=== PATIENT | female | born 1960 | race Caucasian/White ===

== ENCOUNTER 2023-10-19 13:34 | Observation (INO) | payer MEDICAID ==
--- NOTE | 2023-10-19 14:06 | ERPHSYRPT ---
- History of Present Illness Time Seen by Provider: 10/19/23 14:01 Source: patient, family Exam Limitations: no limitations Patient Subjective Stated Complaint: PT HERE FOR SWELLING AND PAIN TO RIGHT HAND FOR A WEEK GETTING WORSE Triage Nursing Assessment: PT ARRIVED PER WC, ALERT, RESP EASY, SKIN W/D/P, HAS BLISTER TO RIGHT INDEX FINGER WITH SWELLING AND SOME REDNESS, SHE STATES STARTED AFTER CLIPPING FINGER NAILS . PT IS RIGHT BELOW KNEE AMPUTEE Physician History: patient trimmed nails and began to later note right index swelling she thought started with a hangnail. Now has pus blister on distal phalanx right index tender. NV, tendon function intact. no other complaints of symptoms or injuries. and no known trauma to this. Pt is Diabetic. family to serve as independent source for Hx. Discussed risks/benefits of testing and Tx with pt and family including CBC, CMP, ESR , xray, I and D, Keflex and they wish to proceed so these are ordered. Results discussed with pt and available family. Occurred: last week Method of Injury: other (nail clippers) Quality: constant, aching, sharpness, throbbing Severity of Pain-Max: moderate Severity of Pain-Current: moderate Extremities Pain Location: 2nd finger: right Modifying Factors: Improves With: movement Associated Symptoms: none Allergies/Adverse Reactions: No Known Drug Allergies Allergy (Unverified 10/19/23 13:46) Home Medications: Metformin HCl 500 mg [Glucophage 500 MG] 500 mg PO DAILY 10/19/23 [History] Hx Tetanus, Diphtheria Vaccination/Date Given: No Hx Influenza Vaccination/Date Given: No Hx Pneumococcal Vaccination/Date Given: Yes Immunizations Up to Date: Yes Travel Risk - International Travel Have you traveled outside of the country in past 3 weeks: No - Emerging Infectious Disease Are you exhibiting symptoms associated with any current EIDs: No - Review of Systems Constitutional: No Fever, No Chills Eyes: No Symptoms Ears, Nose, & Throat: No Symptoms Respiratory: No Cough, No Dyspnea Cardiac: No Chest Pain, No Edema, No Syncope Abdominal/Gastrointestinal: No Abdominal Pain, No Nausea, No Vomiting, No Diarrhea Genitourinary Symptoms: No Dysuria Musculoskeletal: No Back Pain, No Neck Pain Skin: Skin Lesions (right index pus blister), No Rash Neurological: No Dizziness, No Focal Weakness, No Sensory Changes Psychological: No Symptoms Endocrine: No Symptoms Hematologic/Lymphatic: No Symptoms Immunological/Allergic: No Symptoms All Other Systems: Reviewed and Negative - Past Medical History Pertinent Past Medical History: Yes Endocrine Medical History: Diabetes Type II - Past Surgical History Past Surgical History: Yes Musculoskeletal: Amputation Female Surgical History: Tubal Ligation Other Surgical History: RIGHT LEG - Social History Smoking Status: Former smoker Exposure to second hand smoke: Yes Drug Use: none - Nursing Vital Signs Nursing Vital Signs: Initial Vital Signs Temperature 97.6 F 10/19/23 13:35 Pulse Rate 84 10/19/23 13:35 Blood Pressure 170/64 10/19/23 13:35 O2 Sat by Pulse Oximetry 97 10/19/23 13:35 Pain Scale Pain Intensity 8 - Physical Exam General Appearance: no apparent distress, alert Eyes, Ears, Nose, Throat Exam: moist mucous membranes Neck Exam: non-tender, supple Cardiovascular/Respiratory Exam: chest non-tender, normal breath sounds, regular rate/rhythm, no respiratory distress Abdominal Exam: non-tender, No guarding Back Exam: normal inspection, No vertebral tenderness Shoulder Exam: normal inspection, non-tender, no evidence of injury, normal ROM Elbow/Forearm Exam: normal inspection, non-tender, no evidence of injury, normal ROM Wrist Exam: normal inspection, non-tender, no evidence of injury, normal ROM Hand Exam: infection (right index) DTR - Upper Extremity Exam: bicep (R): 2+, bicep (L): 2+, tricep (R): 2+, tricep (L): 2+ Neuro/Tendon Exam: normal sensation, normal motor functions, normal tendon functions Mental Status Exam: alert, oriented x 3, cooperative Skin Exam: normal color, warm, dry Procedures - Incision and Drainage Time of Procedure: 16:07 Anesthesia: 1% Lidocaine cc's of anesthesia: 2 Blade Size: other (18 gauge needle) I & D Procedure: hibiclens prep, sterile drapes applied, sterile dressing applied, culture obtained Results: large amount pus - Course Nursing assessment & vital signs reviewed: Yes - Radiology Exams Right Hand X-ray Interpretation: Interpreted by me, Reviewed by me, No Fracture, Other (no obvious osteomyelitis) Ordered Tests: Active Orders 24 hr Category Date Time Status HAND (MINIMUM 3 VIEWS) Stat Exams 10/19/23 14:09 Taken CBC W DIFF Stat Lab 10/19/23 14:25 Completed CMP Stat Lab 10/19/23 14:25 Completed Medication Summary Generic Name Dose Route Start Last Admin Trade Name Freq PRN Reason Stop Dose Admin Vancomycin HCl 1 gm in 200 mls @ 125 mls/hr 10/19/23 16:08 Vancomycin 1 Gram/200 Ml Bag IV 10/19/23 17:43 STAT ONE Discontinued Medications Generic Name Dose Route Start Last Admin Trade Name Freq PRN Reason Stop Dose Admin Diphtheria/Tetanus/Acell Pertussis 0.5 ml 10/19/23 14:10 10/19/23 14:25 Tdap --Diph,Pertuss(Acell),Tet Vac/Pf 0.5 Ml Vial IM 10/19/23 14:11 0.5 ml .ONCE ONE Administration Diphtheria/Tetanus/Acell Pertussis Confirm 10/19/23 14:22 Tdap --Diph,Pertuss(Acell),Tet Vac/Pf 0.5 Ml Vial Administered 10/19/23 14:23 Dose 0.5 ml IM .STK-MED ONE Ceftriaxone Sodium 1 gm in 100 mls @ 200 mls/hr 10/19/23 16:09 10/19/23 16:25 Rocephin 1 Gm / 100 Ml Nacl IV 10/19/23 16:38 200 ml/hr STAT ONE 200 mls/hr Administration Ceftriaxone Sodium Confirm 10/19/23 16:22 Rocephin 1 Gm / 100 Ml Nacl Administered 10/19/23 16:23 Dose 1 gm in 100 mls @ ud IV .STK-MED ONE Lab/Rad Data: Laboratory Result Diagrams 10/19/23 14:25 10/19/23 14:25 Laboratory Results 10/19/23 10/19/23 Range/Units 14:25 14:25 WBC 12.2 H (4.0-10.5) x10^3/uL RBC 3.83 L (4.1-5.4) x10^6/uL Hgb 9.0 L (12.0-16.0) g/dL Hct 29.1 L (35-47) % MCV 76.0 L (78-100) fL MCH 23.5 L (26-32) pg MCHC 30.9 L (32-36) g/dL RDW 18.6 H (11.5-14.0) % Plt Count 353 (150-450) x10^3/uL MPV 9.4 (7.5-11.0) fL Gran % 74.1 H (36.0-66.0) % Immature Gran % (Auto) 0.5 H (0.00-0.4) % Nucleat RBC Rel Count 0.0 (0.00-0.1) % Eos # (Auto) 0.23 (0-0.5) x10^3/uL Immature Gran # (Auto) 0.06 H (0.00-0.03) x10^3u/L Absolute Lymphs (auto) 2.35 (1.0-4.6) x10^3/uL Absolute Monos (auto) 0.46 (0.0-1.3) x10^3/uL Absolute Nucleated RBC 0.00 (0.00-0.01) x10^3u/L Lymphocytes % 19.3 L (24.0-44.0) % Monocytes % 3.8 (0.0-12.0) % Eosinophils % 1.9 (0.00-5.0) % Basophils % 0.4 (0.0-0.4) % Absolute Granulocytes 9.03 H (1.4-6.9) x10^3/uL Basophils # 0.05 (0-0.4) x10^3/uL Sodium 133 L (135-145) mmol/L Potassium 3.9 (3.5-5.1) mmol/L Chloride 100 (98-107) mmol/L Carbon Dioxide 23 (22-30) mmol/L Anion Gap 13.8 (5-15) MEQ/L BUN 9 (7-17) mg/dL Creatinine 0.73 (0.52-1.04) mg/dL Estimated GFR 91.8 ML/MIN Glucose 208 H (74-106) mg/dL Calcium 8.7 (8.4-10.2) mg/dL Total Bilirubin 0.40 (0.2-1.3) mg/dL AST 10 L (14-36) U/L ALT 12 (0-35) U/L Alkaline Phosphatase 101 (38-126) U/L Serum Total Protein 7.0 (6.3-8.2) g/dL Albumin 3.3 L (3.5-5.0) g/dL - Progress Progress: improved, re-examined Progress Note: 10/19/23 16:01 re-exam reveals pain with flexion of tendon of right index and now redness and swelling in the index extensor space onto the right dorsal hand. I did drane 5 cc pus from the first phalanx. discused vanc and rocephin with pt and available family and they wish to proceed. 10/19/23 16:05 decision is made that we need to consult a hand surgeon for drainage . Called but none available and we have none here at [facility]. Called hand center and awaiting return call. 10/19/23 16:21 hand [facility] could not take pt. we are trying other [facility]. 10/19/23 16:51 the other [facility] are full and cannot accept the pt. The hand surgeon Dr. Rosenberg felt in consultation that admission with IV AB was important and could be observed in hospital for progress but might require surgical draining if not improving - and I discussed this with our hospitalist Dr. Carr and he has accepted the pt for this purpose at our hospital. Counseled pt/family regarding: lab results, diagnosis, need for follow-up, rad results Medical Desision Making - Independent Historian Additional History obtained from: Family - Discussion of managment Reviewed:: Test results, Need for additional workup Agreed on:: Treatment plan, need for follow-up - Diagnostic Testing Diagnostic test were ordered, analyzed, and reviewed by me: Yes Radiological Interpretation: Interpreted by me, Reviewed by me - Risk of complications The pt has a mod risk of morbidity or mortality based on: Need for prescription drug management The pt has a high risk of morbidity or mortality based on: Decision regarding hospitilization or escalation of hosp level of care - Departure Departure Disposition: Observation Clinical Impression: right index tendon infection Condition: Good Critical Care Time: No Referrals: DOCTOR,NO FAMILY [Primary Care Provider] - Follow up/PCP as directed
[2023-10-19] MEDS ORDERED: Adacel Vial IM ONE (14:22)
[2023-10-19] MEDS: Adacel Vial IM ONE (14:25)
[2023-10-19 14:36] LABS: Absolute Neutrophil Ct (ANC) 9.03 x10^3/uL (1.4-6.9); BASOPHIL % 0.4 % (0.0-0.4); Basophil (Absolute #) 0.05 x10^3/uL (0-0.4); Eosinophil % 1.9 % (0.00-5.0); Eosinophil (Absolute #) 0.23 x10^3/uL (0-0.5); Hematocrit 29.1 % (35-47); IMMATURE GRAN # 0.06 x10^3u/L (0.00-0.03); IMMATURE GRAN % 0.5 % (0.00-0.4); Lymphocyte (Absolute #) 2.35 x10^3/uL (1.0-4.6); Lymphocytes % 19.3 % (24.0-44.0); Mean Corpuscular Hemoglobin 23.5 pg (26-32); Mean Corpuscular Hgb Concent. 30.9 g/dL (32-36); Mean Platelet Volume 9.4 fL (7.5-11.0); Monocyte (Absolute #) 0.46 x10^3/uL (0.0-1.3); Monocytes % 3.8 % (0.0-12.0); Neutrophil % 74.1 % (36.0-66.0); Platelet Count 353 x10^3/uL (150-450); Red Blood Count 3.83 x10^6/uL (4.1-5.4); Red Cell Distribution Width 18.6 % (11.5-14.0); White Blood Count 12.2 x10^3/uL (4.0-10.5)
[2023-10-19 14:50] LABS: ALBUMIN 3.3 g/dL (3.5-5.0); ANION GAP 13.8 MEQ/L (5-15); BILIRUBIN,TOTAL 0.4 mg/dL (0.2-1.3); Calcium 8.7 mg/dL (8.4-10.2); Creatinine 1 0.73 mg/dL (0.52-1.04); EST GLOMERULAR FILTRATION RATE 91.8 ML/MIN; Potassium 3.9 mmol/L (3.5-5.1)
[2023-10-19] MEDS ORDERED: ROCEPHIN 1 GM / 100 ML NaCl 1 GM/100 ML IVPB IV ONE (16:22)
[2023-10-19] MEDS: ROCEPHIN 1 GM / 100 ML NaCl 1 GM/100 ML IVPB IV ONE (16:25)
[2023-10-19] MEDS ORDERED: VANCOMYCIN 1 GRAM/200 ML BAG 1 GM/200 ML PIGGYBACK IV ONE (17:06)
[2023-10-19] MEDS: VANCOMYCIN 1 GRAM/200 ML BAG 1 GM/200 ML PIGGYBACK IV ONE (17:07)
--- NOTE | 2023-10-19 17:50 | PCM.HP ---
History of Present Illness - Chief Complaint Chief Complaint: right index finger tendon infection Date: 10/19/23 History of Present Illness: Ms. Hyman is a 63 year old female with a pmhx of DM II and RBKA who presented to ED 10/19/23 with complaints of swelling and pain to her right hand/right index finger for the past week. Patient reports that she noticed a small blister shortly after clipping her nails about a week ago which then progressed into a larger blister with surrounding redness, swelling, and pain. Patient reports the pain as constant and aching in characteristic, 5/10 on numerical pain scale. She states pain was relieved after I&D performed in ED. Upon exam dorsal medial right index finger with erythema and edema extending to mid dorsal right hand. Denies fever, cp, abdominal pain, POTTS, dizziness, N/V/D. In ED, vitals were stable. Right hand Xray per ED physician interpretation with no acute findings. Lab findings remarkable for leukocytosis with WBC at12.2, microcytic/hypochromic anemia, mild hyponatremia, and mild hyperglycemia. I&D pe rformed in ED with 5ML of pus drained from the first phalanx. Per Ed documentation, hand surgeon recommended overnight observation with antibiotics. Patient started on ceftriaxone and vancomycin. - Review of Systems Constitutional: No Symptoms Eyes: No Symptoms Ears, Nose, & Throat: No Symptoms Respiratory: Short Of Breath Cardiac: No Symptoms Abdominal/Gastrointestinal: No Symptoms Genitourinary Symptoms: No Symptoms Musculoskeletal: Joint Pain, Joint Swelling Skin: Skin Lesions (right index ) Neurological: No Symptoms Psychological: No Symptoms Endocrine: No Symptoms Hematologic/Lymphatic: Anemia Immunological/Allergic: No Symptoms Medications & Allergies Home Medications: Home Medication List Metformin HCl 500 mg [Glucophage 500 MG] 500 mg PO DAILY 10/19/23 [History Confirmed 10/19/23] Allergies/Adverse Reactions: Allergies Allergy/AdvReac Type Severity Reaction Status Date / Time No Known Drug Allergies Allergy Unverified 10/19/23 17:32 - Past Medical History Past Medical History: Yes Endocrine Medical History: Diabetes Type II - Past Surgical History Past Surgical History: Yes Musculskeletal Surgical Hx: Amputation Female Surgical History: Tubal Ligation Other Surgical History: RIGHT LEG - Social History Smoking Status: Former smoker Exposure to second hand smoke: Yes Alcohol: None Drug Use: none - Social Determinants of Health Will the patient participate in the screening: Yes Do you worry about a steady place to live?: No Do you have any problems with any of the following?: No known problems In the past 12 months,have you had to go without utilities?: No Have you or anyone in your house had to go without enough: No Transportation Issues: No Has anyone in your support network made you feel unsafe?: No - Physical Exam Vital Signs: Vital Signs - 24 hr Temp Pulse Resp BP BP Pulse Ox 10/19/23 17:02 97 10/19/23 16:00 154/67 10/19/23 15:30 164/78 98 10/19/23 15:27 141/65 98 10/19/23 15:26 82 16 141/65 95 10/19/23 15:25 93 L 10/19/23 13:35 97.6 F 84 170/64 97 General Appearance: no apparent distress Neurologic Exam: alert, oriented x 3, cooperative Eye Exam: PERRL/EOMI Ears, Nose, Throat Exam: normal ENT inspection Neck Exam: normal inspection Respiratory Exam: normal breath sounds, lungs clear Cardiovascular Exam: regular rate/rhythm, normal heart sounds Pelvic Exam: not done Rectal Exam: deferred Back Exam: normal inspection Extremity Exam: swelling (right index finger extending to mid dorsal right hand), tenderness Results - Labs Lab/Micro Results: Lab Results-Last 24 Hours 10/19/23 10/19/23 Range/Units 14:25 14:25 WBC 12.2 H (4.0-10.5) x10^3/uL RBC 3.83 L (4.1-5.4) x10^6/uL Hgb 9.0 L (12.0-16.0) g/dL Hct 29.1 L (35-47) % MCV 76.0 L (78-100) fL MCH 23.5 L (26-32) pg MCHC 30.9 L (32-36) g/dL RDW 18.6 H (11.5-14.0) % Plt Count 353 (150-450) x10^3/uL MPV 9.4 (7.5-11.0) fL Gran % 74.1 H (36.0-66.0) % Immature Gran % (Auto) 0.5 H (0.00-0.4) % Nucleat RBC Rel Count 0.0 (0.00-0.1) % Eos # (Auto) 0.23 (0-0.5) x10^3/uL Immature Gran # (Auto) 0.06 H (0.00-0.03) x10^3u/L Absolute Lymphs (auto) 2.35 (1.0-4.6) x10^3/uL Absolute Monos (auto) 0.46 (0.0-1.3) x10^3/uL Absolute Nucleated RBC 0.00 (0.00-0.01) x10^3u/L Lymphocytes % 19.3 L (24.0-44.0) % Monocytes % 3.8 (0.0-12.0) % Eosinophils % 1.9 (0.00-5.0) % Basophils % 0.4 (0.0-0.4) % Absolute Granulocytes 9.03 H (1.4-6.9) x10^3/uL Basophils # 0.05 (0-0.4) x10^3/uL Sodium 133 L (135-145) mmol/L Potassium 3.9 (3.5-5.1) mmol/L Chloride 100 (98-107) mmol/L Carbon Dioxide 23 (22-30) mmol/L Anion Gap 13.8 (5-15) MEQ/L BUN 9 (7-17) mg/dL Creatinine 0.73 (0.52-1.04) mg/dL Estimated GFR 91.8 ML/MIN Glucose 208 H (74-106) mg/dL Calcium 8.7 (8.4-10.2) mg/dL Total Bilirubin 0.40 (0.2-1.3) mg/dL AST 10 L (14-36) U/L ALT 12 (0-35) U/L Alkaline Phosphatase 101 (38-126) U/L Serum Total Protein 7.0 (6.3-8.2) g/dL Albumin 3.3 L (3.5-5.0) g/dL - Radiology Impressions Radiology Exams & Impressions: Radiology Procedures Category Date Time Status HAND (MINIMUM 3 VIEWS) Stat Exams 10/19/23 14:09 Taken Assessment/Plan (1) Abscess of finger of right hand Current Visit: Yes Status: Acute Assessment & Plan: -right hand xray per pre-pinedo read, no acute findings -Vanc/ceftriaxone started in ED, continue with doxycycline -Keep affected area elevated Code(s): L02.511 - CUTANEOUS ABSCESS OF RIGHT HAND (2) Leukocytosis Current Visit: Yes Status: Acute Assessment & Plan: -most likely secondary to right index finger infection -Vanc/ceftriaxone started in ED, will continue -WBC at 12.2 -trend -culture pending -will follow Code(s): D72.829 - ELEVATED WHITE BLOOD CELL COUNT, UNSPECIFIED (3) Type 2 diabetes mellitus Current Visit: Yes Status: Acute Assessment & Plan: -SSI -ADA diet -A1c The entirety of this encounter was performed via Telemedicine" This visit was performed using real-time audio and video connection between my location and thepatients locationwith the assistance of a surrogateat the patients location. Written or verbal consent was obtained from the patient/guardian to perform this visit using[employer]medicine technology. Any patient questions regarding the telemedicine interaction were answered. Telemedicine Encounter - Telemedicine Encounter Telemedicine Encounter: The entirety of this encounter was performed via Telemedicine"
[2023-10-19] MEDS ORDERED: TYLENOL 325 MG PO PRN (17:55)
[2023-10-19] MEDS ORDERED: HUMALOG SQ PRN (17:55)
[2023-10-19] MEDS ORDERED: NORCO 5/325 MG PO PRN (18:01)
[2023-10-19 19:05] LABS: Iron 20 ug/dL (37-170); Iron Saturation 7 % (20-39); TIBC 299 ug/dL (265-462)
[2023-10-19 20:03] LABS: Ferritin 16.1 ng/mL (11.1-264); Folate (Folic Acid) 4.59 ng/mL (2.76 - >20)
--- NOTE | 2023-10-19 20:27 | XRAY ---
Indication: Right index finger infection. Comparison: None 3 view right hand demonstrates diffuse 2nd finger soft tissue swelling. Elsewhere osteopenia, mild degenerative changes all IP joints, and radial/ulnar vascular calcifications. No other bony, articular, or soft tissue abnormalities.
[2023-10-20 06:04] LABS: ANION GAP 11.5 MEQ/L (5-15); Absolute Neutrophil Ct (ANC) 8.06 x10^3/uL (1.4-6.9); BASOPHIL % 0.4 % (0.0-0.4); BILIRUBIN,TOTAL 0.3 mg/dL (0.2-1.3); Basophil (Absolute #) 0.05 x10^3/uL (0-0.4); Calcium 8.5 mg/dL (8.4-10.2); Creatinine 1 0.77 mg/dL (0.52-1.04); EST GLOMERULAR FILTRATION RATE 86.1 ML/MIN; Eosinophil % 2.5 % (0.00-5.0); Eosinophil (Absolute #) 0.28 x10^3/uL (0-0.5); Hemoglobin 8.5 g/dL (12.0-16.0); IMMATURE GRAN # 0.04 x10^3u/L (0.00-0.03); IMMATURE GRAN % 0.4 % (0.00-0.4); Lymphocyte (Absolute #) 2.26 x10^3/uL (1.0-4.6); Lymphocytes % 20.2 % (24.0-44.0); Mean Cell Volume 76.3 fL (78-100); Mean Corpuscular Hemoglobin 23.2 pg (26-32); Mean Corpuscular Hgb Concent. 30.4 g/dL (32-36); Mean Platelet Volume 9.9 fL (7.5-11.0); Monocyte (Absolute #) 0.48 x10^3/uL (0.0-1.3); Monocytes % 4.3 % (0.0-12.0); Neutrophil % 72.2 % (36.0-66.0); Platelet Count 340 x10^3/uL (150-450); Potassium 3.9 mmol/L (3.5-5.1); Red Blood Count 3.67 x10^6/uL (4.1-5.4); Red Cell Distribution Width 18.7 % (11.5-14.0); Total Protein 6.5 g/dL (6.3-8.2); White Blood Count 11.2 x10^3/uL (4.0-10.5)
[2023-10-20] MEDS: Sodium Chloride 0.9% 1000 ML 1,000 ML IV SCH (08:01)
[2023-10-20] MEDS: VANCOMYCIN 1 GRAM/200 ML BAG 1 GM/200 ML PIGGYBACK IV SCH (09:41)
[2023-10-20] MEDS ORDERED: Vibramycin 100 MG PO SCH (10:00)
--- NOTE | 2023-10-20 10:15 | PCM.NOTE ---
Date and Time: 10/20/23 1002 Subjective Assessment: Ms. Hyman is a 63 year old female admitted with an abscess of her right finger after experiencing a week history of redness, swelling, and pain following a nail clipping. Right hand Xray demonstrates 2nd finger soft tissue swelling. Lab findings remarkable for leukocytosis with WBC at12.2, microcytic/hypochromic anemia, mild hyponatremia, and mild hyperglycemia. I&D performed in ED with 5ML of pus drained from the first phalanx. Patient initially received ceftriaxone and vancomycin, continued on vancomycin and unasyn. Cultures pending. 10/20/23: Met with patient bedside. Endorses that pain and swelling have improvement since admission. Upon exam of the right index finger and hand erythema is receeding marked borders on the proximal hand although there is not much improvement in swelling. Discussed labwork showing improved WBC. Patient is mildly hyponatremic. Discussed A1c of 9.91 and the importance of good glycemic control on healing etc. Patient states she does not follow with PCP or any specialist as an OP. Will have CM look into PCP and any additional home needs. Plan for continued IV abx- await cultures. Denies fever,cough, sob, cp, abdominal pain, POTTS, dizziness, N/V/D. - Review of Systems Constitutional: No Symptoms Eyes: No Symptoms Ears, Nose, & Throat: No Symptoms Respiratory: No Symptoms Cardiac: No Symptoms Abdominal/Gastrointestinal: No Symptoms Genitourinary Symptoms: No Symptoms Musculoskeletal: Joint Pain (right index finger) Skin: Skin Lesions (right extension side of finger into proximal hand), Other Neurological: No Symptoms Psychological: No Symptoms Endocrine: No Symptoms Hematologic/Lymphatic: No Symptoms Immunological/Allergic: No Symptoms Objective Exam General Appearance: no apparent distress Neurologic Exam: alert, oriented x 3, cooperative Skin Exam: other (see wound assessment) Wound Assessment: Skin/Wound Assessment Wound/Incision Assessment Start: 10/19/23 18:07 Text: Status: Active Freq: Q6H Protocol: Document 10/20/23 08:00 JV (Rec: 10/20/23 08:29 JV [id number]) Wound/Incision Assessment Right Finger Wound Assessment Shift Assessment Wound Type infection Wound Stage Non Pressure Wound Drainage Amount None General Appearance Well Approximated,Open to air Surrounding Tissue Bright Red,Edematous Comment reddness marked, no drainage noted. Remains true. Wound Photo Photo Taken No Eye Exam: PERRL Ears, Nose, Throat Exam: moist mucous membranes Neck Exam: normal inspection, full range of motion Respiratory Exam: wheezing (exp bilaterally) Cardiovascular Exam: regular rate/rhythm, normal heart sounds Gastrointestinal/Abdomen Exam: soft, normal bowel sounds Extremity Exam: inflammation (right index finger), joint swelling (r), swelling, other (RBKA) Back Exam: normal inspection Pelvic Exam: deferred Rectal Exam: deferred Objective Data Vital Signs: Vital Signs - 24 hr Temp Pulse Resp BP BP Pulse Ox 10/20/23 08:00 131/66 10/20/23 07:04 97.9 F 84 16 182/71 93 L 10/20/23 04:00 99.4 F 88 20 161/65 97 10/20/23 00:00 98.0 F 76 19 128/59 89 L 10/19/23 20:00 98.4 F 76 22 139/64 92 L 10/19/23 17:45 98 F 92 H 20 157/69 95 10/19/23 17:02 97 10/19/23 16:00 154/67 10/19/23 15:30 164/78 98 10/19/23 15:27 141/65 98 10/19/23 15:26 82 16 141/65 95 10/19/23 15:25 93 L 10/19/23 13:35 97.6 F 84 170/64 97 Pain Assessment - Last Documented Pain Intensity 0 Intake and Output: Intake & Output 10/17/23 10/18/23 10/19/23 10/20/23 11:59 11:59 11:59 11:59 Intake Total 600 Output Total 500 Balance 100 Weight 60.5 kg Lab Results: Lab Results-Last 24 Hours 10/19/23 10/19/23 10/19/23 Range/Units 14:25 14:25 14:25 WBC 12.2 H (4.0-10.5) x10^3/uL RBC 3.83 L (4.1-5.4) x10^6/uL Hgb 9.0 L (12.0-16.0) g/dL Hct 29.1 L (35-47) % MCV 76.0 L (78-100) fL MCH 23.5 L (26-32) pg MCHC 30.9 L (32-36) g/dL RDW 18.6 H (11.5-14.0) % Plt Count 353 (150-450) x10^3/uL MPV 9.4 (7.5-11.0) fL Gran % 74.1 H (36.0-66.0) % Immature Gran % (Auto) 0.5 H (0.00-0.4) % Nucleat RBC Rel Count 0.0 (0.00-0.1) % Eos # (Auto) 0.23 (0-0.5) x10^3/uL Immature Gran # (Auto) 0.06 H (0.00-0.03) x10^3u/L Absolute Lymphs (auto) 2.35 (1.0-4.6) x10^3/uL Absolute Monos (auto) 0.46 (0.0-1.3) x10^3/uL Absolute Nucleated RBC 0.00 (0.00-0.01) x10^3u/L Lymphocytes % 19.3 L (24.0-44.0) % Monocytes % 3.8 (0.0-12.0) % Eosinophils % 1.9 (0.00-5.0) % Basophils % 0.4 (0.0-0.4) % Absolute Granulocytes 9.03 H (1.4-6.9) x10^3/uL Basophils # 0.05 (0-0.4) x10^3/uL Sodium 133 L (135-145) mmol/L Potassium 3.9 (3.5-5.1) mmol/L Chloride 100 (98-107) mmol/L Carbon Dioxide 23 (22-30) mmol/L Anion Gap 13.8 (5-15) MEQ/L BUN 9 (7-17) mg/dL Creatinine 0.73 (0.52-1.04) mg/dL Estimated GFR 91.8 ML/MIN Glucose 208 H (74-106) mg/dL POC Glucometer (74 to 106) mg/dL Hemoglobin A1c (4.5-6.0) % Calcium 8.7 (8.4-10.2) mg/dL Iron (37-170) ug/dL TIBC (265-462) ug/dL Iron Saturation (20-39) % Ferritin 16.1 (11.1-264) ng/mL Total Bilirubin 0.40 (0.2-1.3) mg/dL AST 10 L (14-36) U/L ALT 12 (0-35) U/L Alkaline Phosphatase 101 (38-126) U/L Serum Total Protein 7.0 (6.3-8.2) g/dL Albumin 3.3 L (3.5-5.0) g/dL Vitamin B12 180 L (239-931) pg/mL Folic Acid 4.59 (2.76 - >20) ng/mL 10/19/23 10/19/23 10/19/23 Range/Units 14:25 18:20 21:42 WBC (4.0-10.5) x10^3/uL RBC (4.1-5.4) x10^6/uL Hgb (12.0-16.0) g/dL Hct (35-47) % MCV (78-100) fL MCH (26-32) pg MCHC (32-36) g/dL RDW (11.5-14.0) % Plt Count (150-450) x10^3/uL MPV (7.5-11.0) fL Gran % (36.0-66.0) % Immature Gran % (Auto) (0.00-0.4) % Nucleat RBC Rel Count (0.00-0.1) % Eos # (Auto) (0-0.5) x10^3/uL Immature Gran # (Auto) (0.00-0.03) x10^3u/L Absolute Lymphs (auto) (1.0-4.6) x10^3/uL Absolute Monos (auto) (0.0-1.3) x10^3/uL Absolute Nucleated RBC (0.00-0.01) x10^3u/L Lymphocytes % (24.0-44.0) % Monocytes % (0.0-12.0) % Eosinophils % (0.00-5.0) % Basophils % (0.0-0.4) % Absolute Granulocytes (1.4-6.9) x10^3/uL Basophils # (0-0.4) x10^3/uL Sodium (135-145) mmol/L Potassium (3.5-5.1) mmol/L Chloride (98-107) mmol/L Carbon Dioxide (22-30) mmol/L Anion Gap (5-15) MEQ/L BUN (7-17) mg/dL Creatinine (0.52-1.04) mg/dL Estimated GFR ML/MIN Glucose (74-106) mg/dL POC Glucometer 123 H 155 H (74 to 106) mg/dL Hemoglobin A1c (4.5-6.0) % Calcium (8.4-10.2) mg/dL Iron 20 L (37-170) ug/dL TIBC 299 (265-462) ug/dL Iron Saturation 7 L (20-39) % Ferritin (11.1-264) ng/mL Total Bilirubin (0.2-1.3) mg/dL AST (14-36) U/L ALT (0-35) U/L Alkaline Phosphatase (38-126) U/L Serum Total Protein (6.3-8.2) g/dL Albumin (3.5-5.0) g/dL Vitamin B12 (239-931) pg/mL Folic Acid (2.76 - >20) ng/mL 10/20/23 10/20/23 10/20/23 Range/Units 05:20 05:20 05:20 WBC 11.2 H (4.0-10.5) x10^3/uL RBC 3.67 L (4.1-5.4) x10^6/uL Hgb 8.5 L (12.0-16.0) g/dL Hct 28.0 L (35-47) % MCV 76.3 L (78-100) fL MCH 23.2 L (26-32) pg MCHC 30.4 L (32-36) g/dL RDW 18.7 H (11.5-14.0) % Plt Count 340 (150-450) x10^3/uL MPV 9.9 (7.5-11.0) fL Gran % 72.2 H (36.0-66.0) % Immature Gran % (Auto) 0.4 (0.00-0.4) % Nucleat RBC Rel Count 0.0 (0.00-0.1) % Eos # (Auto) 0.28 (0-0.5) x10^3/uL Immature Gran # (Auto) 0.04 H (0.00-0.03) x10^3u/L Absolute Lymphs (auto) 2.26 (1.0-4.6) x10^3/uL Absolute Monos (auto) 0.48 (0.0-1.3) x10^3/uL Absolute Nucleated RBC 0.00 (0.00-0.01) x10^3u/L Lymphocytes % 20.2 L (24.0-44.0) % Monocytes % 4.3 (0.0-12.0) % Eosinophils % 2.5 (0.00-5.0) % Basophils % 0.4 (0.0-0.4) % Absolute Granulocytes 8.06 H (1.4-6.9) x10^3/uL Basophils # 0.05 (0-0.4) x10^3/uL Sodium 132 L (135-145) mmol/L Potassium 3.9 (3.5-5.1) mmol/L Chloride 104 (98-107) mmol/L Carbon Dioxide 21 L (22-30) mmol/L Anion Gap 11.5 (5-15) MEQ/L BUN 10 (7-17) mg/dL Creatinine 0.77 (0.52-1.04) mg/dL Estimated GFR 86.1 ML/MIN Glucose 154 H (74-106) mg/dL POC Glucometer (74 to 106) mg/dL Hemoglobin A1c 9.91 H (4.5-6.0) % Calcium 8.5 (8.4-10.2) mg/dL Iron (37-170) ug/dL TIBC (265-462) ug/dL Iron Saturation (20-39) % Ferritin (11.1-264) ng/mL Total Bilirubin 0.30 (0.2-1.3) mg/dL AST 12 L (14-36) U/L ALT 11 (0-35) U/L Alkaline Phosphatase 106 (38-126) U/L Serum Total Protein 6.5 (6.3-8.2) g/dL Albumin 3.0 L (3.5-5.0) g/dL Vitamin B12 (239-931) pg/mL Folic Acid (2.76 - >20) ng/mL 05/27/24 Range/Units 07:20 WBC (4.0-10.5) x10^3/uL RBC (4.1-5.4) x10^6/uL Hgb (12.0-16.0) g/dL Hct (35-47) % MCV (78-100) fL MCH (26-32) pg MCHC (32-36) g/dL RDW (11.5-14.0) % Plt Count (150-450) x10^3/uL MPV (7.5-11.0) fL Gran % (36.0-66.0) % Immature Gran % (Auto) (0.00-0.4) % Nucleat RBC Rel Count (0.00-0.1) % Eos # (Auto) (0-0.5) x10^3/uL Immature Gran # (Auto) (0.00-0.03) x10^3u/L Absolute Lymphs (auto) (1.0-4.6) x10^3/uL Absolute Monos (auto) (0.0-1.3) x10^3/uL Absolute Nucleated RBC (0.00-0.01) x10^3u/L Lymphocytes % (24.0-44.0) % Monocytes % (0.0-12.0) % Eosinophils % (0.00-5.0) % Basophils % (0.0-0.4) % Absolute Granulocytes (1.4-6.9) x10^3/uL Basophils # (0-0.4) x10^3/uL Sodium (135-145) mmol/L Potassium (3.5-5.1) mmol/L Chloride (98-107) mmol/L Carbon Dioxide (22-30) mmol/L Anion Gap (5-15) MEQ/L BUN (7-17) mg/dL Creatinine (0.52-1.04) mg/dL Estimated GFR ML/MIN Glucose (74-106) mg/dL POC Glucometer 127 H (74 to 106) mg/dL Hemoglobin A1c (4.5-6.0) % Calcium (8.4-10.2) mg/dL Iron (37-170) ug/dL TIBC (265-462) ug/dL Iron Saturation (20-39) % Ferritin (11.1-264) ng/mL Total Bilirubin (0.2-1.3) mg/dL AST (14-36) U/L ALT (0-35) U/L Alkaline Phosphatase (38-126) U/L Serum Total Protein (6.3-8.2) g/dL Albumin (3.5-5.0) g/dL Vitamin B12 (239-931) pg/mL Folic Acid (2.76 - >20) ng/mL Radiology Exams: Radiology Procedures Category Date Time Status HAND (MINIMUM 3 VIEWS) Stat Exams 10/19/23 14:09 Completed Multi-Disciplinary Progress Notes: Multi-Disciplinary Progress Notes 10/20/23 09:35 Pharmacy Note by Merlin Oleary Pharmacokinetic dosing service Date: 10/20/2023 Time: 929 Objective: Patient: Lurdes Hyman Floor: 102 Age: 63 yo Serum creatinine: 0.77 mg/dL Height: 63 Inches Weight (kg): 60 Diagnosis: SKIN INFECTION HAND Relevant medical/social history: Cultures and sensitivities: PENDING Other labs: Assessment: IBW (kg): 52.40 Dosing wt(kg): 60 Estimated Creatinine clearance (ml/min): 61.1 CRCL method: Cockcroft and Gault using ibw(default). Drug selected: Vancomycin Loading dose (mg): 1000 MG 10/15 1700 Vd (liters): 42.0 (factor used: 0.7 L/kg) Jeffrey (hr-1): 0.055 Half life (hrs): 12.60 Recommended dose: 1000 mg Interval: 24 hrs Infusion time (hrs): 1.5 Predicted peak (mcg/mL): 31.2 Predicted trough (mcg/mL): 9.05 Total body weight is being used for vancomycin dosing. Renal function is stable [ XXX] /unstable [ ] Recommendations: Give Vancomycin 1000 mg q 24 hrs with an expected Cpeak of 31.2 mcg/ml and an expected Ctrough of 9.05 mcg/ml Renal dosing of other antibiotics (review renal dosing of other medications and list guidelines here): Thank you for the consult, will continue to follow. Signature: KAROL TROUGH 10/21 929 Initialized on 10/20/23 09:35 - END OF NOTE 10/20/23 09:35 Pharmacy Note by Merlin Oleary THE CALCULATED CREATININE CLEARANCE FOR THIS PATIENT IS: 61 ML/MIN PHARMACY TO DOSE ZOSYN PER MD REQUEST PER MEDICAL STAFF APPROVED PHARMACY PROTOCOL THE MEDICATION DOSE: ZOSYN 3.375 GM Q6H THANK YOU KAROL Initialized on 10/20/23 09:35 - END OF NOTE Assessment/Plan (1) Abscess of finger of right hand Current Visit: Yes Status: Acute Assessment & Plan: (1) Abscess of finger of right hand Current Visit: Yes Status: Acute Assessment & Plan: -right hand xray per pre-pinedo read, no acute findings -Vanc/ceftriaxone started in ED, continue with doxycycline -Keep affected area elevated 10/19: -right hand xray final report with right 2nd finger soft tissue swelling -Will continue vanc/unasyn - follow cultures -Plan for ortho consult tomorrow Code(s): L02.511 - CUTANEOUS ABSCESS OF RIGHT HAND (2) Leukocytosis Current Visit: Yes Status: Acute Assessment & Plan: -most likely secondary to right index finger infection -Vanc/ceftriaxone started in ED, will continue -WBC at 12.2 -trend -culture pending -will follow 10/19: -improving Code(s): D72.829 - ELEVATED WHITE BLOOD CELL COUNT, UNSPECIFIED (3) Type 2 diabetes mellitus Current Visit: Yes Status: Acute Assessment & Plan: -SSI -ADA diet -A1c -9.91 -discussed importance of good glycemic control. Will have CM meet with patient to discuss needs - pt will need set up with follow up pcp #Hyponatremia -Mild, IVF at 75ml/hr # Anemia -iron sat at 7%, hgb at 8.5, will start on ferrous sulfate for now, refer for op iron infusion on dc Code(s): L02.511 - CUTANEOUS ABSCESS OF RIGHT HAND (2) Leukocytosis Current Visit: Yes Status: Acute Code(s): D72.829 - ELEVATED WHITE BLOOD CELL COUNT, UNSPECIFIED (3) Type 2 diabetes mellitus Current Visit: Yes Status: Acute (4) Hyponatremia Current Visit: Yes Status: Acute Code(s): E87.1 - HYPO-OSMOLALITY AND HYPONATREMIA (5) Hypochromic microcytic anemia Current Visit: Yes Status: Acute Code(s): D50.9 - IRON DEFICIENCY ANEMIA, UNSPECIFIED
[2023-10-20 12:00] LABS: ANION GAP 9.9 MEQ/L (5-15); Calcium 8.3 mg/dL (8.4-10.2); Creatinine 1 0.93 mg/dL (0.52-1.04); EST GLOMERULAR FILTRATION RATE 68.6 ML/MIN; Potassium 3.9 mmol/L (3.5-5.1)
[2023-10-20] MEDS: PIPERACILLIN/TAZOBACTAM 3.375 GM in Sodium Chloride 100ML MINI-BAG PLUS 100 ML IV SCH (12:09)
[2023-10-20] MEDS: DUONEB 0.5-3 MG/3 ml Neb IH PRN (14:03)
[2023-10-20] MEDS: Zofran 4 MG/2 ML VIAL IV PRN (22:19)
[2023-10-21 04:30] LABS: Absolute Neutrophil Ct (ANC) 4.72 x10^3/uL (1.4-6.9); BASOPHIL % 0.6 % (0.0-0.4); Basophil (Absolute #) 0.04 x10^3/uL (0-0.4); Eosinophil % 2.7 % (0.00-5.0); Eosinophil (Absolute #) 0.19 x10^3/uL (0-0.5); Hematocrit 24.5 % (35-47); Hemoglobin 7.5 g/dL (12.0-16.0); IMMATURE GRAN # 0.03 x10^3u/L (0.00-0.03); IMMATURE GRAN % 0.4 % (0.00-0.4); Lymphocyte (Absolute #) 1.72 x10^3/uL (1.0-4.6); Lymphocytes % 24.4 % (24.0-44.0); Mean Corpuscular Hemoglobin 23.6 pg (26-32); Mean Corpuscular Hgb Concent. 30.6 g/dL (32-36); Mean Platelet Volume 9.7 fL (7.5-11.0); Monocyte (Absolute #) 0.36 x10^3/uL (0.0-1.3); Monocytes % 5.1 % (0.0-12.0); Neutrophil % 66.8 % (36.0-66.0); Platelet Count 289 x10^3/uL (150-450); Red Blood Count 3.18 x10^6/uL (4.1-5.4); Red Cell Distribution Width 18.7 % (11.5-14.0); White Blood Count 7.1 x10^3/uL (4.0-10.5)
[2023-10-21 04:56] LABS: ALBUMIN 2.4 g/dL (3.5-5.0); ANION GAP 8.3 MEQ/L (5-15); BILIRUBIN,TOTAL 0.2 mg/dL (0.2-1.3); Calcium 7.7 mg/dL (8.4-10.2); Creatinine 1 0.83 mg/dL (0.52-1.04); EST GLOMERULAR FILTRATION RATE 78.7 ML/MIN; Potassium 3.8 mmol/L (3.5-5.1); Total Protein 5.5 g/dL (6.3-8.2)
[2023-10-21] MEDS: PHARMACY DOSING REQUEST MC ONE (10:24)
--- NOTE | 2023-10-21 10:26 | PCM.DS ---
Discharge Summary Date of Admission: 10/19/23 17:23 Date of Discharge: 10/21/23 Admitting Physician: HITESH ALCANTARA MD Primary Care Provider: NO FAMILY DOCTOR Allergies Allergies No Known Drug Allergies Allergy (Unverified 10/19/23 17:32) Hospital Summary - Hospital Course Hospital Course: Ms. Hyman is a 63 year old female admitted with an abscess of her right finger after experiencing a week history of redness, swelling, and pain following a nail clipping. Right hand Xray demonstrates 2nd finger soft tissue swelling. Initial Lab findings remarkable for leukocytosis with WBC at 12.2, microcytic/hypochromic anemia, mild hyponatremia, and mild hyperglycemia. I&D performed in ED with 5ML of pus drained from the first phalanx. Patient initially received ceftriaxone and vancomycin, continued on vancomycin and unasyn. Cultures showing MRSA. Patient adamant about discharging home today. Will discharge home on oral antibiotics. Patient started on ferrous sulfate BID, received venofer x 1 dose, will need follow up this week for labs. Patient has been set up with PCP as OP. Glucometer sent out and patient advised on the importance of good glycemic control. Recommend follow up with Dr. Flood (ID) as well. Discharge Note New Diagnosis: MRSA infection right index finger New Medications: Doxycycline/keflex Follow Up: PCP/ID Latest Assessment & Plan (1) Abscess of finger of right hand Current Visit: Yes Status: Acute Assessment & Plan: -right hand xray per pre-pinedo read, no acute findings -Vanc/ceftriaxone started in ED, continue with doxycycline -Keep affected area elevated 10/19: -right hand xray final report with right 2nd finger soft tissue swelling -Will continue vanc/unasyn - follow cultures 10/20: -culture with MRSA - send home with doxy/keflex - follow up with ID Code(s): L02.511 - CUTANEOUS ABSCESS OF RIGHT HAND (2) Leukocytosis Current Visit: Yes Status: Acute Assessment & Plan: -most likely secondary to right index finger infection -Vanc/ceftriaxone started in ED, will continue -WBC at 12.2 -trend -culture pending -will follow 10/19: -improving 10/20: -Resolved Code(s): D72.829 - ELEVATED WHITE BLOOD CELL COUNT, UNSPECIFIED (3) Type 2 diabetes mellitus Current Visit: Yes Status: Acute Assessment & Plan: -SSI -ADA diet -A1c -9.91 -discussed importance of good glycemic control. Will have CM meet with patient to discuss needs - pt will need set up with follow up pcp 10/20: -glucometer and strips sent -PCP and ID set up for pt #Anemia -Venofer x 1 dose -ferrous sulfate BID -recheck labs this week with PCP I spent 35 minutes [id number] with the patient on the day of discharge performing discharge exam, discussing hospital stay and discharge instructions with patient and caregivers, preparation of discharge records, prescriptions & referral forms and addressing any questions/concerns the patient had as documented above. - Vitals & Intake/Output Vital Signs: Vital Signs Temperature 96.8 F 10/21/23 07:11 Pulse Rate 72 10/21/23 07:11 Respiratory Rate 19 10/21/23 07:11 Blood Pressure 138/63 10/21/23 07:11 O2 Sat by Pulse Oximetry 97 10/21/23 07:11 Intake & Output: Intake & Output 10/18/23 10/19/23 10/20/23 10/21/23 11:59 11:59 11:59 11:59 Intake Total 600 3331 Output Total 500 325 Balance 100 3006 Weight 60.5 kg - Lab Result Diagrams: 10/21/23 04:25 10/21/23 04:25 Lab Results-Last 24 Hrs: Lab Results-Last 24 Hours 10/20/23 10/20/23 10/20/23 Range/Units 11:32 11:40 16:08 WBC (4.0-10.5) x10^3/uL RBC (4.1-5.4) x10^6/uL Hgb (12.0-16.0) g/dL Hct (35-47) % MCV (78-100) fL MCH (26-32) pg MCHC (32-36) g/dL RDW (11.5-14.0) % Plt Count (150-450) x10^3/uL MPV (7.5-11.0) fL Gran % (36.0-66.0) % Immature Gran % (Auto) (0.00-0.4) % Nucleat RBC Rel Count (0.00-0.1) % Eos # (Auto) (0-0.5) x10^3/uL Immature Gran # (Auto) (0.00-0.03) x10^3u/L Absolute Lymphs (auto) (1.0-4.6) x10^3/uL Absolute Monos (auto) (0.0-1.3) x10^3/uL Absolute Nucleated RBC (0.00-0.01) x10^3u/L Lymphocytes % (24.0-44.0) % Monocytes % (0.0-12.0) % Eosinophils % (0.00-5.0) % Basophils % (0.0-0.4) % Absolute Granulocytes (1.4-6.9) x10^3/uL Basophils # (0-0.4) x10^3/uL Sodium 133 L (135-145) mmol/L Potassium 3.9 (3.5-5.1) mmol/L Chloride 104 (98-107) mmol/L Carbon Dioxide 23 (22-30) mmol/L Anion Gap 9.9 (5-15) MEQ/L BUN 11 (7-17) mg/dL Creatinine 0.93 (0.52-1.04) mg/dL Estimated GFR 68.6 ML/MIN Glucose 162 H (74-106) mg/dL POC Glucometer 164 H 146 H (74 to 106) mg/dL Calcium 8.3 L (8.4-10.2) mg/dL Total Bilirubin (0.2-1.3) mg/dL AST (14-36) U/L ALT (0-35) U/L Alkaline Phosphatase (38-126) U/L Serum Total Protein (6.3-8.2) g/dL Albumin (3.5-5.0) g/dL 10/20/23 10/21/23 10/21/23 Range/Units 21:06 04:25 04:25 WBC 7.1 (4.0-10.5) x10^3/uL RBC 3.18 L (4.1-5.4) x10^6/uL Hgb 7.5 L (12.0-16.0) g/dL Hct 24.5 L (35-47) % MCV 77.0 L (78-100) fL MCH 23.6 L (26-32) pg MCHC 30.6 L (32-36) g/dL RDW 18.7 H (11.5-14.0) % Plt Count 289 (150-450) x10^3/uL MPV 9.7 (7.5-11.0) fL Gran % 66.8 H (36.0-66.0) % Immature Gran % (Auto) 0.4 (0.00-0.4) % Nucleat RBC Rel Count 0.0 (0.00-0.1) % Eos # (Auto) 0.19 (0-0.5) x10^3/uL Immature Gran # (Auto) 0.03 (0.00-0.03) x10^3u/L Absolute Lymphs (auto) 1.72 (1.0-4.6) x10^3/uL Absolute Monos (auto) 0.36 (0.0-1.3) x10^3/uL Absolute Nucleated RBC 0.00 (0.00-0.01) x10^3u/L Lymphocytes % 24.4 (24.0-44.0) % Monocytes % 5.1 (0.0-12.0) % Eosinophils % 2.7 (0.00-5.0) % Basophils % 0.6 (0.0-0.4) % Absolute Granulocytes 4.72 (1.4-6.9) x10^3/uL Basophils # 0.04 (0-0.4) x10^3/uL Sodium 135 (135-145) mmol/L Potassium 3.8 (3.5-5.1) mmol/L Chloride 111 H (98-107) mmol/L Carbon Dioxide 20 L (22-30) mmol/L Anion Gap 8.3 (5-15) MEQ/L BUN 13 (7-17) mg/dL Creatinine 0.83 (0.52-1.04) mg/dL Estimated GFR 78.7 ML/MIN Glucose 155 H (74-106) mg/dL POC Glucometer 149 H (74 to 106) mg/dL Calcium 7.7 L (8.4-10.2) mg/dL Total Bilirubin 0.20 (0.2-1.3) mg/dL AST 20 (14-36) U/L ALT 13 (0-35) U/L Alkaline Phosphatase 99 (38-126) U/L Serum Total Protein 5.5 L (6.3-8.2) g/dL Albumin 2.4 L (3.5-5.0) g/dL 10/21/23 Range/Units 06:45 WBC (4.0-10.5) x10^3/uL RBC (4.1-5.4) x10^6/uL Hgb (12.0-16.0) g/dL Hct (35-47) % MCV (78-100) fL MCH (26-32) pg MCHC (32-36) g/dL RDW (11.5-14.0) % Plt Count (150-450) x10^3/uL MPV (7.5-11.0) fL Gran % (36.0-66.0) % Immature Gran % (Auto) (0.00-0.4) % Nucleat RBC Rel Count (0.00-0.1) % Eos # (Auto) (0-0.5) x10^3/uL Immature Gran # (Auto) (0.00-0.03) x10^3u/L Absolute Lymphs (auto) (1.0-4.6) x10^3/uL Absolute Monos (auto) (0.0-1.3) x10^3/uL Absolute Nucleated RBC (0.00-0.01) x10^3u/L Lymphocytes % (24.0-44.0) % Monocytes % (0.0-12.0) % Eosinophils % (0.00-5.0) % Basophils % (0.0-0.4) % Absolute Granulocytes (1.4-6.9) x10^3/uL Basophils # (0-0.4) x10^3/uL Sodium (135-145) mmol/L Potassium (3.5-5.1) mmol/L Chloride (98-107) mmol/L Carbon Dioxide (22-30) mmol/L Anion Gap (5-15) MEQ/L BUN (7-17) mg/dL Creatinine (0.52-1.04) mg/dL Estimated GFR ML/MIN Glucose (74-106) mg/dL POC Glucometer 164 H (74 to 106) mg/dL Calcium (8.4-10.2) mg/dL Total Bilirubin (0.2-1.3) mg/dL AST (14-36) U/L ALT (0-35) U/L Alkaline Phosphatase (38-126) U/L Serum Total Protein (6.3-8.2) g/dL Albumin (3.5-5.0) g/dL Micro Results-Entire Visit: Microbiology 10/19/23 15:00 Wound Culture - Final Finger - R First(Index) Methicillin Resist Staph Aur Accuchecks Date 10/21/23 Date 10/20/23 Date 10/20/23 Date 10/20/23 Time 07:11 Time 16:16 Time 11:42 - Radiology Exams Ordered Rad Exams-Entire Visit: Radiology Procedures Category Date Time Status HAND (MINIMUM 3 VIEWS) Stat Exams 10/19/23 14:09 Completed - Procedures and Test Procedures and Tests throughout Hospitalization: Therapy Orders & Screens 10/20/23 13:56 Respiratory Therapy Assessment DAILY Comment: Diagnosis: right index finger tendon infection Discharge Exam General Appearance: no apparent distress Neurologic Exam: alert, oriented x 3, cooperative Eye Exam: PERRL Ears, Nose, Throat Exam: normal ENT inspection Neck Exam: normal inspection Respiratory Exam: crackles/rales Cardiovascular Exam: regular rate/rhythm, normal heart sounds Gastrointestinal/Abdomen Exam: soft, normal bowel sounds Pelvic Exam: deferred Rectal Exam: deferred Back Exam: normal inspection Skin Exam: other (right index finger with mild erythema and edema, receeding marked borders) Wound Assessment: Skin/Wound Assessment Wound/Incision Assessment Start: 10/19/23 18:07 Text: Status: Active Freq: Q6H Protocol: Document 10/21/23 08:00 (Rec: 10/21/23 08:40 [id number]) Wound/Incision Assessment Right Finger Wound Assessment Shift Assessment Wound Type infection Wound Stage Non Pressure Wound Drainage Amount None General Appearance Open to air,Reddened Surrounding Tissue Bright Red,Edematous Comment reddness marked, no drainage noted-Remains true. Wound Photo Photo Taken No Final Diagnosis/Problem List - Final Discharge Diagnosis/Problem (1) Abscess of finger of right hand Current Visit: Yes Status: Acute Code(s): L02.511 - CUTANEOUS ABSCESS OF RIGHT HAND (2) Leukocytosis Current Visit: Yes Status: Acute Code(s): D72.829 - ELEVATED WHITE BLOOD CELL COUNT, UNSPECIFIED (3) Type 2 diabetes mellitus Current Visit: Yes Status: Acute (4) Hyponatremia Current Visit: Yes Status: Acute Code(s): E87.1 - HYPO-OSMOLALITY AND HYPONATREMIA (5) Hypochromic microcytic anemia Current Visit: Yes Status: Acute Code(s): D50.9 - IRON DEFICIENCY ANEMIA, UNSPECIFIED - Discharge Condition: Good Prescriptions: New Ferrous Sulfate 325 mg [Feosol 325 mg] 325 mg PO BID 30 Days #60 tablet Cephalexin Mh 500 mg [Keflex 500 mg] 500 mg PO Q6H 7 Days #28 cap Doxycycline Hyclate 100 mg [Vibramycin 100 MG] 100 mg PO BID 7 Days #14 tab Continue Metformin HCl 500 mg [Glucophage 500 MG] 500 mg PO DAILY Follow up with: DOCTOR,NO FAMILY [Primary Care Provider] - CONG FLOOD [NON-STAFF PHY W/O PRIVILEGES] -
[2023-10-21 11:51] VITALS: BP 184/90; PULSE 65; RESP 17; TEMP 96.5; O2SAT 95
[2023-10-21] MEDS: Venofer 100 MG/5 ML*** 200 MG in Sodium Chloride 0.9% 100 ML IV ONE (12:33)
[2023-10-21] MEDS: HYLENEX 150 UNITS INJECTION SQ SCH (13:21)
[2023-10-22] MEDS ORDERED: TROUGH DRUG LEVELS IJ ONE (09:30)
== END 2023-10-21 14:34 | disposition home or self-care (01) ==
LOC: ED 13:34 → MED SURG 17:23
PROVIDERS: ADMIT Internal Medicine; ATTEND Internal Medicine
DX: L02.511 Cutaneous abscess of right hand (principal); D72.829 Elevated white blood cell count, unspecified; E11.9 Type 2 diabetes mellitus without complications; E87.1 Hypo-osmolality and hyponatremia; D50.9 Iron deficiency anemia, unspecified; Z89.511 Acquired absence of right leg below knee; Z79.899 Other long term (current) drug therapy
CPT/HCPCS: 10060; 36000; 36415; 73130; 80048; 80053; 82607; 82728; 82746; 82947; 83036; 83540; 83550; 85025; 87070; 87077; 87186; 90471; 94640; 94760; 96365; 96368; 99285; G0378; Q3014; 90715; J0696; J1756; J2405; J3470; A9270-GY; J3370